=== PATIENT | female | born 1970 | race Caucasian/White ===

== ENCOUNTER 2017-08-14 15:52 | Emergency (ER) | payer MEDICAID, OTHER ==
[~2017-08-14] VITALS: Ht 182.9 cm; Wt 59.0 kg
[2017-08-14 15:56] VITALS: BP 136/100
--- NOTE | 2017-08-14 16:30 | NUR ---
XRAY AT BS
[2017-08-14] MEDS ORDERED: LIDOCAINE 2% 20 ML MDV ONE (17:26)
[2017-08-14] MEDS ORDERED: LIDOCAINE 2% 20 ML MDV IJ ONE (17:30)
== END 2017-08-14 18:45 | disposition home or self-care (01) ==
LOC: ER 15:54
DX: S62.325A Displaced fracture of shaft of fourth metacarpal bone, left hand, initial encounter for closed fracture (principal); Z90.89 Acquired absence of other organs; V43.52XA Car driver injured in collision with other type car in traffic accident, initial encounter; Y93.89 Activity, other specified; Y92.413 State road as the place of occurrence of the external cause; Y99.8 Other external cause status
CPT/HCPCS: 29125; 73130 ×2; 99284; A4606; J3490; Z7610